=== PATIENT | female | born 1985 | race Caucasian/White ===

== ENCOUNTER 2020-01-14 18:59 | Emergency (ER) | payer MEDICAID ==
[~2020-01-14] VITALS: Ht 167.6 cm; Wt 82.0 kg
[2020-01-14 19:02] VITALS: BP 113/77
[2020-01-14] MEDS ORDERED: HYDROCODONE/ACETAMINOPHEN 5/325MG TABLET PO ONE (20:00)
== END 2020-01-14 22:27 | disposition home or self-care (01) ==
LOC: ER 18:59
DX: S16.1XXA Strain of muscle, fascia and tendon at neck level, initial encounter (principal); S20.212A Contusion of left front wall of thorax, initial encounter; S06.899A Other specified intracranial injury with loss of consciousness of unspecified duration, initial encounter; J45.909 Unspecified asthma, uncomplicated; M32.9 Systemic lupus erythematosus, unspecified; V47.5XXA Car driver injured in collision with fixed or stationary object in traffic accident, initial encounter; Y93.9 Activity, unspecified; Y92.9 Unspecified place or not applicable; Z88.8 Allergy status to other drugs, medicaments and biological substances
CPT/HCPCS: 29125; 71101; 73110; 73130; 73562; 99285

== ENCOUNTER 2021-09-27 14:32 | Inpatient (IN) | payer MEDICAID ==
[~2021-09-27] VITALS: Ht 167.6 cm; Wt 72.1 kg
[2021-09-27] MEDS ORDERED: SODIUM CHLORIDE 0.9% 1,000 ML IV ONE ×2 (15:00→18:30)
[2021-09-27 15:50] LABS: BASOPHILS % 0.4 % (0.0-2.0); EOSINOPHILS % 0.2 % (0.0-5.0); HEMATOCRIT. 34.4 % (36.0-48.0); HEMOGLOBIN. 10.9 g/dL (12.0-16.0); LYMPHOCYTES % 13.1 % (20.0-50.0); MEAN CORPUSCULAR VOLUME 78.7 fL (81.0-99.0); MEAN PLATELET VOLUME 9.2 fl (7.4-10.4); MONOCYTES % 4.3 % (2.0-8.0); PLATELET 191 x1000/uL (130-400); RED BLOOD CELL COUNT 4.37 mill/uL (4.2-5.4); RED CELL DISTRIBUTION WIDTH 18.9 % (11.6-14.6)
[2021-09-27 16:13] LABS: D-DIMER 0.2 mg/L FEU (<0.50); INR 1.1; PROTHROMBIN TIME 11.6 sec (9.6-11.0)
[2021-09-27 16:14] LABS: CHLORIDE 112 mEq/L (98-107)
[2021-09-27 16:19] LABS: ETHANOL BLOOD < 10 mg/dL
[2021-09-27 16:21] LABS: PHOSPHORUS 3.2 mg/dL (2.5-4.9)
[2021-09-27 16:23] LABS: CREATINE KINASE 50 IU/L (26-192); HCG SCREEN NEGATIVE
[2021-09-27] MEDS ORDERED: IOHEXOL-300 100 ML BOTTLE ONE (17:24)
[2021-09-27] MEDS ORDERED: DEXTROSE 50% WATER 50ML SYRINGE IV ONE (17:45)
[2021-09-27 19:54] LABS: CLARITY URINE CLEAR (CLEAR); COLOR URINE YELLOW (YELLOW); KETONES URINE 3+ (NEGATIVE); LEUKOCYTE ESTERASE URINE NEGATIVE (NEGATIVE); NITRITE URINE NEGATIVE (NEGATIVE); OCCULT BLOOD URINE TRACE (NEGATIVE); PH URINE 5.5 (4.5-8.0); PROTEIN URINE NEGATIVE (NEGATIVE); SPECIFIC GRAVITY URINE 1.057 (1.005-1.030); UROBILINOGEN URINE 0.2 E.U./dL (0.2-1.0)
[2021-09-27 20:11] LABS: *AMPHETAMINES SCREEN URINE NEGATIVE (NEGATIVE); *BARBITURATES SCREEN URINE NEGATIVE (NEGATIVE); *BENZODIAZEPINES SCREEN URINE NEGATIVE (NEGATIVE); *COCAINE SCREEN URINE NEGATIVE (NEGATIVE); METHADONE URINE SCREEN NEGATIVE (NEGATIVE)
[2021-09-27 20:12] LABS: CANNABINOID URINE SCREEN NEGATIVE (NEGATIVE); OPIATES URINE SCREEN NEGATIVE (NEGATIVE); PHENCYCLIDINE URINE SCREEN NEGATIVE (NEGATIVE)
[2021-09-27] MEDS ORDERED: METHYLPREDNISOLONE 40MG/ML INJ IV SCH (23:00)
[2021-09-28] MEDS: METHYLPREDNISOLONE SOD SUCC 40 MG/ML VIAL IV SCH ×3 (07:18→20:04)
[2021-09-28 08:08] VITALS: BP 108/60
[2021-09-28 09:54] VITALS: BP 108/60
[2021-09-28] MEDS ORDERED: PRED10TA23 PO (09:57)
[2021-09-28] MEDS ORDERED: ONDANSETRON HCL 4MG/2ML INJ IV PRN (10:15)
[2021-09-28] MEDS ORDERED: LACTULOSE 20G/30ML UDC PO PRN (10:15)
[2021-09-28] MEDS ORDERED: LACTULOSE 20G/30ML UDC PO NR (10:15)
[2021-09-28] MEDS: DOCUSATE SODIUM 250MG CAPSULE PO SCH (10:28)
[2021-09-28 11:28] VITALS: BP 94/45
[2021-09-28] MEDS: ACETAMINOPHEN 325MG TABLET PO PRN ×2 (12:00→20:04)
[2021-09-28] MEDS ORDERED: GABA300C PO (12:29)
[2021-09-28] MEDS ORDERED: IPRATROPIUM/ALBUTEROL 0.5-3(2.5)MG/3ML NEB HHN PRN (12:30)
[2021-09-28] MEDS: GABAPENTIN 300MG CAPSULE PO SCH ×2 (13:23→20:04)
[2021-09-28 13:50] VITALS: BP 95/54
[2021-09-28 15:50] VITALS: BP 95/56
[2021-09-28 20:00] VITALS: BP 95/55
[2021-09-29] VITALS (7 sets, daily range): BP systolic 82–112; BP diastolic 36–65
[2021-09-29] MEDS: HYDROCODONE/ACETAMINOPHEN 10/325MG TABLET PO PRN ×3 (00:41→15:37)
[2021-09-29] MEDS ORDERED: NALOXONE HCL 0.4 MG/ML 1ML VIAL IV PRN (00:45)
[2021-09-29] MEDS ORDERED: SODIUM CHLORIDE 0.9% 1,000 ML IV SCH ×2 (04:45→05:45)
[2021-09-29] MEDS: GABAPENTIN 300MG CAPSULE PO SCH ×3 (04:47→21:33)
[2021-09-29] MEDS: METHYLPREDNISOLONE SOD SUCC 40 MG/ML VIAL IV SCH ×2 (04:47→13:36)
[2021-09-29] MEDS: DOCUSATE SODIUM 250MG CAPSULE PO SCH (08:25)
[2021-09-29] MEDS ORDERED: PNEUMOCOCCAL 23-VAL P-SAC VAC 0.5 ML IM ONE (09:00)
[2021-09-29] MEDS: MIDODRINE HCL 2.5MG TABLET PO SCH ×2 (11:45→17:20)
[2021-09-29] MEDS ORDERED: PIPERACILLIN/TAZOBACTAM 3.375 G in DEXTROSE 5% WATER 50 ML IV SCH (15:00)
[2021-09-29] MEDS ORDERED: LEVO500T89 MT (18:31)
[2021-09-29] MEDS ORDERED: P20 MT (18:31)
[2021-09-29] MEDS ORDERED: MIDO2.5T MT ×2 (19:35→20:36)
[2021-09-29] MEDS ORDERED: MIDODRINE HCL 2.5MG TABLET PO NR (21:00)
== END 2021-09-29 21:45 | disposition home or self-care (01) | DRG 48 ==
LOC: ER 14:32 → MICUSO 19:00 → 6WST 09-28 08:30
PROVIDERS: ADMIT Internal Medicine; ATTEND Internal Medicine
DX: G90.8 Other disorders of autonomic nervous system (principal); E87.8 Other disorders of electrolyte and fluid balance, not elsewhere classified; M32.9 Systemic lupus erythematosus, unspecified; D64.9 Anemia, unspecified; I95.9 Hypotension, unspecified; K56.41 Fecal impaction; J45.909 Unspecified asthma, uncomplicated; E16.2 Hypoglycemia, unspecified; K52.9 Noninfective gastroenteritis and colitis, unspecified; I10 Essential (primary) hypertension; Z88.8 Allergy status to other drugs, medicaments and biological substances
CPT/HCPCS: 36415; 71045; 74177; 76830; 76856; 80053; 80305; 80307; 80320; 80329; 81003; 82550; 82962; 83605; 83735; 83880; 84100; 84145; 84484; 84703; 85025; 85379; 86850; 86900; 90732; 93005; 94640; 99285; J2543; J2920; J7030; J7060; Q9967; G0480

== ENCOUNTER 2021-09-30 14:11 | Emergency (ER) | payer MEDICAID ==
[~2021-09-30] VITALS: Ht 167.6 cm; Wt 65.0 kg
[~2021-09-30 14:11] MED LIST: GABA300C PO; LEVO500T89 MT; MIDO2.5T MT; P20 MT
[2021-09-30 15:30] LABS: BASOPHILS % 0.3 % (0.0-2.0); EOSINOPHILS % 0.3 % (0.0-5.0); HEMATOCRIT. 37.5 % (36.0-48.0); HEMOGLOBIN. 11.9 g/dL (12.0-16.0); LYMPHOCYTES % 25.4 % (20.0-50.0); MEAN CORPUSCULAR HEMOGLOBIN 24.8 pg (28.0-32.0); MEAN CORPUSCULAR VOLUME 78.2 fL (81.0-99.0); MONOCYTES % 10.1 % (2.0-8.0); NEUTROPHILS % 63.9 % (40.0-76.0); RED BLOOD CELL COUNT 4.79 mill/uL (4.2-5.4); RED CELL DISTRIBUTION WIDTH 18.9 % (11.6-14.6)
[2021-09-30 15:31] LABS: CHLORIDE 116 mEq/L (98-107)
[2021-09-30 15:33] LABS: HCG SCREEN NEGATIVE
[2021-09-30 16:22] LABS: MEAN PLATELET VOLUME 9.9 fl (7.4-10.4); PLATELET 145 x1000/uL (130-400)
[2021-09-30 16:23] LABS: PLATELET ESTIMATE NORMAL
[2021-09-30] MEDS ORDERED: MORPHINE SULFATE 4 MG/ML CPJ (NOT FOR IM USE) IV STA (18:18)
[2021-09-30] MEDS ORDERED: FAMOTIDINE 20MG/2ML VIAL IV ONE (18:30)
[2021-09-30] MEDS ORDERED: SODIUM CHLORIDE 0.9% 1,000 ML IV ONE ×2 (18:30→22:45)
[2021-09-30] MEDS ORDERED: LEVOFLOXACIN 500MG PREMIX 100 ML IV ONE (18:30)
[2021-09-30] MEDS ORDERED: MORPHINE SULFATE 4 MG/ML CPJ (NOT FOR IM USE) IV ONE (22:15)
[2021-09-30] MEDS: PREDNISONE 20MG TABLET PO SCH (22:37)
[2021-09-30] MEDS ORDERED: LEVOFLOXACIN 500MG PREMIX 100 ML IV SCH (23:30)
[2021-09-30 23:48] LABS: CLARITY URINE CLEAR (CLEAR); COLOR URINE YELLOW (YELLOW); KETONES URINE NEGATIVE (NEGATIVE); LEUKOCYTE ESTERASE URINE NEGATIVE (NEGATIVE); NITRITE URINE NEGATIVE (NEGATIVE); OCCULT BLOOD URINE NEGATIVE (NEGATIVE); PH URINE 6.5 (4.5-8.0); PROTEIN URINE NEGATIVE (NEGATIVE); SPECIFIC GRAVITY URINE 1.011 (1.005-1.030); UROBILINOGEN URINE 0.2 E.U./dL (0.2-1.0)
[2021-10-01 00:07] LABS: *AMPHETAMINES SCREEN URINE NEGATIVE (NEGATIVE); *BARBITURATES SCREEN URINE NEGATIVE (NEGATIVE); *BENZODIAZEPINES SCREEN URINE NEGATIVE (NEGATIVE); *COCAINE SCREEN URINE NEGATIVE (NEGATIVE); CANNABINOID URINE SCREEN NEGATIVE (NEGATIVE); METHADONE URINE SCREEN NEGATIVE (NEGATIVE)
[2021-10-01 00:09] LABS: PHENCYCLIDINE URINE SCREEN NEGATIVE (NEGATIVE)
[2021-10-01 00:10] LABS: OPIATES URINE SCREEN PRESUMTIVE POSITIVE (NEGATIVE)
[2021-10-01] MEDS ORDERED: IBUPROFEN 600MG TABLET PO ONE (04:00)
[2021-10-01] MEDS ORDERED: KETOROLAC 15MG/ML VIAL IV ONE (05:00)
[2021-10-01] MEDS: PREDNISONE 20MG TABLET PO SCH (09:15)
[2021-10-01] MEDS ORDERED: HYDROXYZINE 25MG TABLET PO PRN (13:00)
[2021-10-01] MEDS: GABAPENTIN 300MG CAPSULE PO SCH ×2 (14:06→22:00)
[2021-10-01] MEDS: ACETAMINOPHEN 160MG/5ML UDC PO PRN (18:28)
[2021-10-01] MEDS: TOPIRAMATE 100MG TABLET PO SCH (21:00)
[2021-10-01] MEDS: SERTRALINE HCL 50MG TABLET PO SCH (21:00)
[2021-10-02] MEDS: GABAPENTIN 300MG CAPSULE PO SCH ×3 (06:30→21:45)
[2021-10-02] MEDS: PREDNISONE 20MG TABLET PO SCH (10:15)
[2021-10-02] MEDS: SERTRALINE HCL 50MG TABLET PO SCH ×2 (10:15→21:45)
[2021-10-02] MEDS: TOPIRAMATE 100MG TABLET PO SCH ×2 (10:15→21:45)
[2021-10-02] MEDS: ACETAMINOPHEN 160MG/5ML UDC PO PRN (20:25)
[2021-10-03] MEDS: GABAPENTIN 300MG CAPSULE PO SCH ×2 (06:23→14:10)
[2021-10-03] MEDS: PREDNISONE 20MG TABLET PO SCH (09:27)
[2021-10-03] MEDS: SERTRALINE HCL 50MG TABLET PO SCH (09:27)
[2021-10-03] MEDS: TOPIRAMATE 100MG TABLET PO SCH (09:27)
[2021-10-03] MEDS: ACETAMINOPHEN 160MG/5ML UDC PO PRN (14:10)
[2021-10-03 16:38] VITALS: BP 115/75
== END 2021-10-03 17:21 | disposition short-term general hospital (02) ==
LOC: ER 14:11
DX: F33.2 Major depressive disorder, recurrent severe without psychotic features (principal); F43.10 Post-traumatic stress disorder, unspecified; R10.33 Periumbilical pain; K56.41 Fecal impaction; R45.851 Suicidal ideations; M32.9 Systemic lupus erythematosus, unspecified; J45.909 Unspecified asthma, uncomplicated; F12.10 Cannabis abuse, uncomplicated; F17.210 Nicotine dependence, cigarettes, uncomplicated; Z60.2 Problems related to living alone; Z88.8 Allergy status to other drugs, medicaments and biological substances; Z75.1 Person awaiting admission to adequate facility elsewhere; Z20.822 Contact with and (suspected) exposure to COVID-19
CPT/HCPCS: 36415; 80053; 80305; 80307; 80329; 81003; 83690; 84703; 85025; 93005; 96365; 96366; 96375; 99285; C9803; J1885; J1956; J2270; J3490; J7030; J7512; U0003; U0005

== ENCOUNTER 2022-04-14 08:38 | Emergency (ER) | payer MEDICAID ==
[~2022-04-14] VITALS: Ht 167.6 cm; Wt 63.0 kg
[~2022-04-14 08:38] MED LIST changes: +GABA-532 MT; +HYDR200T80 MT; -LEVO500T89 MT; +MIRT-89 PO; +ONDA4TAB5 MT; +POTA-204 MT; +PROT40 MT; +SERT50TA MT; +TOP100 PO
[2022-04-14 09:13] LABS: BASOPHILS % 0.2 % (0.0-2.0); EOSINOPHILS % 0.1 % (0.0-5.0); HEMATOCRIT. 35.8 % (36.0-48.0); HEMOGLOBIN. 11.5 g/dL (12.0-16.0); LYMPHOCYTES % 12.8 % (20.0-50.0); MEAN CORPUSCULAR HEMOGLOBIN 24.3 pg (28.0-32.0); MEAN CORPUSCULAR VOLUME 75.9 fL (81.0-99.0); MEAN PLATELET VOLUME 7.8 fl (7.4-10.4); MONOCYTES % 5.9 % (2.0-8.0); PLATELET 317 x1000/uL (130-400); RED BLOOD CELL COUNT 4.72 mill/uL (4.2-5.4); RED CELL DISTRIBUTION WIDTH 17.1 % (11.6-14.6)
[2022-04-14 09:25] LABS: CHLORIDE 103 mEq/L (98-107)
[2022-04-14 09:29] LABS: HCG SCREEN NEGATIVE
[2022-04-14 09:36] LABS: ETHANOL BLOOD < 10 mg/dL
[2022-04-14] MEDS ORDERED: ALBUTEROL (0.083%) 2.5MG/3ML NEB HHN STA (10:23)
[2022-04-14] MEDS ORDERED: IPRATROPIUM BROMIDE (0.02%) 0.5MG/2.5ML NEB HHN STA (10:23)
[2022-04-14] MEDS ORDERED: PREDNISONE 20MG TABLET PO STA (10:23)
[2022-04-14 21:34] LABS: CLARITY URINE TURBID (CLEAR); COLOR URINE YELLOW (YELLOW); KETONES URINE TRACE (NEGATIVE); LEUKOCYTE ESTERASE URINE NEGATIVE (NEGATIVE); NITRITE URINE NEGATIVE (NEGATIVE); OCCULT BLOOD URINE NEGATIVE (NEGATIVE); PH URINE 5.5 (4.5-8.0); PROTEIN URINE NEGATIVE (NEGATIVE); SPECIFIC GRAVITY URINE 1.033 (1.005-1.030); UROBILINOGEN URINE 0.2 E.U./dL (0.2-1.0)
[2022-04-14] MEDS ORDERED: OLANZAPINE 5MG TABLET ODT PO SCH (21:45)
[2022-04-15 01:16] LABS: *BARBITURATES SCREEN URINE NEGATIVE (NEGATIVE); *BENZODIAZEPINES SCREEN URINE NEGATIVE (NEGATIVE); *COCAINE SCREEN URINE NEGATIVE (NEGATIVE); CANNABINOID URINE SCREEN NEGATIVE (NEGATIVE); METHADONE URINE SCREEN NEGATIVE (NEGATIVE); OPIATES URINE SCREEN NEGATIVE (NEGATIVE); PHENCYCLIDINE URINE SCREEN NEGATIVE (NEGATIVE)
[2022-04-15 01:19] LABS: *AMPHETAMINES SCREEN URINE PRESUMTIVE POSITIVE (NEGATIVE)
[2022-04-15] MEDS ORDERED: HYDROXYZINE 25MG TABLET PO PRN (14:00)
[2022-04-15] MEDS: GABAPENTIN 300MG CAPSULE PO SCH ×2 (15:14→22:16)
[2022-04-15] MEDS: OLANZAPINE 5MG TABLET ODT PO SCH (22:16)
[2022-04-15] MEDS: TOPIRAMATE 100MG TABLET PO SCH (22:39)
[2022-04-16] MEDS ORDERED: MIDODRINE HCL 2.5MG TABLET PO ONE (05:00)
[2022-04-16] MEDS: GABAPENTIN 300MG CAPSULE PO SCH ×3 (05:50→22:37)
[2022-04-16] MEDS: TOPIRAMATE 100MG TABLET PO SCH ×2 (09:00→21:55)
[2022-04-16] MEDS: OLANZAPINE 5MG TABLET ODT PO SCH (21:55)
[2022-04-17 04:00] VITALS: BP 108/64
== END 2022-04-17 04:45 | disposition short-term general hospital (02) ==
LOC: ER 08:38
DX: F32.A Depression, unspecified (principal); R45.851 Suicidal ideations; F12.10 Cannabis abuse, uncomplicated; J45.909 Unspecified asthma, uncomplicated; M32.9 Systemic lupus erythematosus, unspecified; Z75.1 Person awaiting admission to adequate facility elsewhere; Z20.822 Contact with and (suspected) exposure to COVID-19; Z79.899 Other long term (current) drug therapy; Z98.890 Other specified postprocedural states; Z88.8 Allergy status to other drugs, medicaments and biological substances
CPT/HCPCS: 36415; 80053; 80305; 80320; 81003; 83690; 83880; 84484; 84703; 85025; 87210; 93005; 94640; 99285; C9803; J7512; U0003; U0005; Z7610; 94664; G0480